=== PATIENT | male | born 1990 | race African-American/Black ===

== ENCOUNTER 2022-09-04 16:46 | Emergency (ER) | payer OTHER ==
[~2022-09-04] VITALS: Ht 188 cm; Wt 93.0 kg
[2022-09-04 17:24] VITALS: BP 113/50
[2022-09-04] MEDS ORDERED: KETOROLAC 30 MG/ML VIAL IM ONE (18:00)
[2022-09-04] MEDS ORDERED: LIDOCAINE 5% 1 EA PATCH TP ONE (18:00)
[2022-09-04] MEDS ORDERED: LID5T TP (18:43)
[2022-09-04] MEDS ORDERED: IBUP-2213 PO (18:43)
[2022-09-04] MEDS ORDERED: CYCL-711 PO (18:43)
--- NOTE | 2022-09-04 19:00 | NUR ---
Patient discharged with v/s stable. Written and verbal after care instructions given and explained. Patient alert, oriented and verbalized understanding of instructions. Ambulatory with steady gait. All questions addressed prior to discharge. ID band removed. Patient advised to follow up with PMD. Rx of flexeril, ibuprofen, lidocaine patch given. Patient educated on indication of medication including possible reaction and side effects. Opportunity to ask questions provided and answered.
== END 2022-09-04 19:00 | disposition home or self-care (01) ==
LOC: MED 16:46
DX: S39.012A Strain of muscle, fascia and tendon of lower back, initial encounter (principal); M54.41 Lumbago with sciatica, right side; Z79.899 Other long term (current) drug therapy; Z79.1 Long term (current) use of non-steroidal anti-inflammatories (NSAID); X50.1XXA Overexertion from prolonged static or awkward postures, initial encounter; Y93.89 Activity, other specified; Y92.89 Other specified places as the place of occurrence of the external cause; Y99.8 Other external cause status
CPT/HCPCS: 96372; 99283; J1885

== ENCOUNTER 2022-10-02 19:59 | Emergency (ER) | payer OTHER ==
[~2022-10-02] VITALS: Ht 188 cm; Wt 93.0 kg
[~2022-10-02 19:59] MED LIST: CYCL-711 PO; IBUP-2213 PO; LID5T TP
[2022-10-02 20:29] VITALS: BP 132/81; PULSE 67; RESP 16; TEMP 97.3; O2SAT 100
[2022-10-02] MEDS ORDERED: KETOROLAC 15 MG/ML VIAL IM ONE (20:30)
--- NOTE | 2022-10-02 20:37 | NUR ---
pt to bed 07 ambulatory
--- NOTE | 2022-10-02 20:38 | NUR ---
32 yo m bib from home with cc of lower back pain for 2 weeks that worsen now with a scale of 9/10. pt stated that he ws here 2 weeks ago for same complaint. denies trauma, vomiting and nausea. call light within reach, pt instructed on how to use call light, pt returned demonstration. all needs met at this time
--- NOTE | 2022-10-02 20:40 | NUR ---
RAD AT BEDSIDE
--- NOTE | 2022-10-02 21:05 | NUR ---
ERMD at bedside
[2022-10-02 21:23] VITALS: BP 132/81; PULSE 67; RESP 16; TEMP 97.3; O2SAT 100
--- NOTE | 2022-10-02 21:23 | NUR ---
Patient discharged with v/s stable. Written and verbal after care instructions given and explained. Patient verbalized understanding. Ambulatory with steady gait. All questions addressed prior to discharge. Advised to follow up with PMD.
== END 2022-10-02 21:23 | disposition home or self-care (01) ==
LOC: MED 19:59
DX: R10.2 Pelvic and perineal pain (principal); M54.50 Low back pain, unspecified; Z79.899 Other long term (current) drug therapy; Z79.1 Long term (current) use of non-steroidal anti-inflammatories (NSAID)
CPT/HCPCS: 72170; 96372; 99283; J1885

== ENCOUNTER 2023-05-04 19:34 | Emergency (ER) | payer OTHER ==
[~2023-05-04] VITALS: Ht 188 cm; Wt 86.2 kg
[2023-05-04 19:37] VITALS: BP 123/71; PULSE 75; RESP 14; TEMP 97; O2SAT 99
[2023-05-04] MEDS: ACETAMINOPHEN EXTRA STRENGTH 500 MG TAB PO ONE (20:31)
[2023-05-04] MEDS ORDERED: NAPR-54 PO (21:59)
== END 2023-05-04 22:05 | disposition home or self-care (01) ==
LOC: MED 19:34
DX: S86.002A Unspecified injury of left Achilles tendon, initial encounter (principal); Z79.899 Other long term (current) drug therapy; Z79.1 Long term (current) use of non-steroidal anti-inflammatories (NSAID); W18.39XA Other fall on same level, initial encounter; Y93.67 Activity, basketball; Y92.89 Other specified places as the place of occurrence of the external cause; Y99.8 Other external cause status
CPT/HCPCS: 29515; 73610; 99283